=== PATIENT | female | born 1960 | race Hispanic/Latino ===

== ENCOUNTER 2020-11-02 11:29 | Outpatient (CLI) | payer OTHER ==
[2020-11-05 19:33] LABS: CD4/CD8 Ratio 0.47 (0.86-5.00)
== END 2020-11-02 11:30 | disposition home or self-care (01) ==
LOC: LAB 11:29
PROVIDERS: ATTEND Internal Medicine
DX: B20 Human immunodeficiency virus [HIV] disease (principal); K75.9 Inflammatory liver disease, unspecified
CPT/HCPCS: 36415; 82024

== ENCOUNTER 2020-11-02 13:21 | Emergency (ER) | payer MEDICAID, OTHER ==
[2020-11-02 14:28] VITALS: BP 138/85
--- NOTE | 2020-11-02 14:34 | Event Note ---
ED Screening Note Date of service: 11/02/20 Time: 14:33 ED Screening Note: Patient presents with complaints of weakness and right wrist pain after fall History of thrombocytopenia and multiple blood transfusion This initial assessment/diagnostic orders/clinical plan/treatment(s) is/are subject to change based on patients health status, clinical progression and re- assessment by fellow clinical providers in the ED. Further treatment and workup at subsequent clinical providers discretion. Patient/guardian urged not to elope from the ED as their condition may be serious if not clinically assessed and managed. Initial orders include: Labs EKG
--- NOTE | 2020-11-02 14:57 | XRay Report ---
LEFT WRIST 3 VIEWS INDICATION / CLINICAL INFORMATION: Left wrist pain after fall. COMPARISON: None available. FINDINGS: BONES and JOINT(S): No acute fracture or subluxation. The bones are demineralized. There is moderate to severe osteoarthritis at the first CMC joint with mild radiocarpal joint space loss. Mild osteoart hritis is noted at the interphalangeal joint of the thumb. SOFT TISSUES: No significant abnormality. ADDITIONAL FINDINGS: None. IMPRESSION: 1. No acute findings. 2. Additional findings as above. Signer Name: Brandon Manley MD Signed: 11/02/2020 2:53 PM Workstation Name: [id number]
[2020-11-02 15:16] LABS: Basophils % (Auto) 0.1 % (0.0-1.8); Eosinophils # (Auto) 0.1 K/mm3 (0.0-0.4); Hematocrit 43.8 % (30.3-42.9); Hemoglobin 14.8 gm/dl (10.1-14.3); Lymphocytes # (Auto) 0.7 K/mm3 (1.2-5.4); Lymphocytes % (Auto) 16.1 % (13.4-35.0); Mean Corpuscular HGB Conc 34 % (30-34); Mean Corpuscular Volume 86 fl (79-97); Monocytes # (Auto) 0.4 K/mm3 (0.0-0.8); Monocytes % (Auto) 10.1 % (0.0-7.3); Red Blood Count 5.11 M/mm3 (3.65-5.03); Red Cell Distribution Width 13.6 % (13.2-15.2)
[2020-11-02 15:25] LABS: Platelet Count 11 K/mm3 (140-440)
[2020-11-02 15:27] LABS: INR 0.91 (0.87-1.13)
[2020-11-02 15:28] LABS: Partial Thromboplastin Time 31.5 Sec. (24.2-36.6)
[2020-11-02 15:58] LABS: Alanine Aminotransferase 46 units/L (7-56); Albumin 3.9 g/dL (3.9-5); BUN/Creatinine Ratio 12; Blood Urea Nitrogen 11 mg/dL (7-17); Calcium 9.2 mg/dL (8.4-10.2); Hemolysis Index 9
[2020-11-02] MEDS ORDERED: predniSONE 20 MG TAB PO ONE (16:06)
[2020-11-02] MEDS ORDERED: HYDROcodone/ACETAMINOPHEN 5-325 MG TAB PO ONE (16:06)
--- NOTE | 2020-11-02 16:15 | Emergency Department Report ---
ED General Adult HPI - General Chief complaint: Weakness Stated complaint: BAD NOSE BLEED PUI?: No Time Seen by Provider: 11/02/20 14:32 Source: patient Mode of arrival: Ambulatory Limitations: No Limitations - History of Present Illness Initial comments: Chief complaint: I am weak. I hurt my wrist. My platelets are low. HPI: This is a 60-year-old female with a history of HIV, HIV associated thrombocytopenia who presents with intermittent nosebleeds. Patient fell yesterday from standing position. Patient has had intermittent nosebleeding for the last 3 to 4 days. She attributed to low platelet count. She is followed by Dr. Astrid Aguilar, HIV doctor in [facility]. In order to address thrombocytopenia she is taking has taken steroids. She has received 2 platelet transfusions. She has been struggling with thrombocytopenia for about a month. She has not taken ART in 1 year. She says that she is just "tired of taking the medication.. She has right hand wrist pain after fall from standing on yesterday. No history of syncope. No chest pain. No shortness of breath. No head trauma. Patient has tenderness to the right hand and wrist. Aleve did not provide any relief. Pain is worse with range of motion. -: days(s) (Several days of nosebleeds), month(s) (Thrombocytopenia for the last month) Location: right, upper extremity Severity scale (0 -10): 8 Quality: aching Consistency: constant Improves with: none Worsens with: none Associated Symptoms: weakness, other (Nosebleeds) Treatments Prior to Arrival: none - Related Data Previous Rx's Medication Instructions Recorded Last Taken Type HYDROcodone/APAP 5-325 [Powderly 1 each PO Q6HR PRN #10 tablet 11/02/20 Unknown Rx 5/325] predniSONE 10 mg PO .TAPER #48 tab 11/02/20 Unknown Rx Allergies Allergy/AdvReac Type Severity Reaction Status Date / Time No Known Allergies Allergy Unverified 11/02/20 11:30 ED Review of Systems ROS: Stated complaint: BAD NOSE BLEED Other details as noted in HPI Comment: All other systems reviewed and negative Constitutional: malaise. denies: fever Respiratory: denies: cough, shortness of breath Gastrointestinal: denies: nausea, vomiting Hematological/Lymphatic: easy bleeding ED Past Medical Hx - Past Medical History Previous Medical History?: Yes Hx HIV: Yes Additional medical history: THROMBOCYTOPENIA - Social History Smoking Status: Never Smoker Substance Use Type: None - Medications Home Medications: Home Medications Medication Instructions Recorded Confirmed Last Taken Type HYDROcodone/APAP 5-325 [Powder[place] 1 each PO Q6HR PRN #10 tablet 11/02/20 Unknown Rx 5/325] predniSONE 10 mg PO .TAPER #48 tab 11/02/20 Unknown Rx ED Physical Exam - General Limitations: No Limitations General appearance: alert, in no apparent distress - Head Head exam: Present: atraumatic, normocephalic - Eye Eye exam: Present: normal appearance - ENT ENT exam: Present: mucous membranes moist - Neck Neck exam: Present: normal inspection, full ROM - Respiratory Respiratory exam: Present: normal lung sounds bilaterally. Absent: respiratory distress, wheezes, rales, rhonchi - Cardiovascular Cardiovascular Exam: Present: regular rate, normal rhythm, normal heart sounds. Absent: systolic murmur, diastolic murmur, rubs, gallop - GI/Abdominal GI/Abdominal exam: Present: soft, normal bowel sounds. Absent: distended, tenderness, guarding, rebound - Extremities Exam Extremities exam: Present: normal inspection - Expanded Upper Extremity Exam Right Shoulder Exam: Present: normal inspection, full ROM Upper Arm exam: Present: normal inspection, full ROM Elbow exam: Present: normal inspection, full ROM Forearm Wrist exam: Present: full ROM, tenderness. Absent: swelling, abrasion Hand Wrist exam: Present: normal inspection, full ROM - Back Exam Back exam: Present: normal inspection - Neurological Exam Neurological exam: Present: alert, oriented X3 - Psychiatric Psychiatric exam: Present: normal affect, normal mood - Skin Skin exam: Present: warm, dry, intact, normal color. Absent: rash ED Course Vital Signs 11/02/20 14:23 Temperature 98.1 F Pulse Rate 114 H Respiratory 20 Rate Blood Pressure 138/85 O2 Sat by Pulse 98 Oximetry ED Medical Decision Making - Lab Data Result diagrams: 11/02/20 15:06 11/02/20 15:06 Laboratory Results - last 24 hr 11/02/20 11/02/20 11/02/20 15:06 15:06 15:06 WBC 4.1 L RBC 5.11 H Hgb 14.8 H Hct 43.8 H MCV 86 MCH 29 MCHC 34 RDW 13.6 Plt Count 11 L* Lymph % (Auto) 16.1 [place] % (Auto) 10.1 H Eos % (Auto) 2.0 Baso % (Auto) 0.1 Lymph # (Auto) 0.7 L [place] # (Auto) 0.4 Eos # (Auto) 0.1 Baso # (Auto) 0.0 Seg Neutrophils % 71.7 H Seg Neutrophils # 3.0 PT 12.1 L INR 0.91 APTT 31.5 Sodium 141 Potassium 4.6 Chloride 107.7 H Carbon Dioxide 25 Anion Gap 13 BUN 11 Creatinine 0.9 Estimated GFR > 60 BUN/Creatinine Ratio 12 Glucose 143 H Calcium 9.2 Total Bilirubin 0.70 AST 60 H ALT 46 Alkaline Phosphatase 99 Troponin T < 0.010 Total Protein 7.5 Albumin 3.9 Albumin/Globulin Ratio 1.1 - EKG Data -: EKG Interpreted by Ms EKG shows normal: sinus rhythm, axis, intervals, QRS complexes, ST-T waves Rate: normal - EKG Data Interpretation: normal EKG 11/02/20 16:16 EKG obtained 1432 EKG interpreted by ri Normal sinus rhythm normal rate normal axis normal intervals no ST elevation no ST-T signs of ischemia normal EKG rate 80 bpm - Radiology Data Radiology results: report reviewed LEFT WRIST 3 VIEWS INDICATION / CLINICAL INFORMATION: Left wrist pain after fall. COMPARISON: None available. FINDINGS: BONES and JOINT(S): No acute fracture or subluxation. The bones are demineralized. There is moderate to severe osteoarthritis at the first CMC joint with mild radiocarpal joint space loss. Mild osteoarthritis is noted at the interphalangeal joint of the thumb. SOFT TISSUES: No significant abnormality. ADDITIONAL FINDINGS: None. IMPRESSION: 1. No acute findings. 2. Additional findings as above. - Medical Decision Making 1. Generalized weakness: No evidence of bleeding. Mild dehydration suspected with hemoconcentration. 2. HIV-associated thrombocytopenia: Prednisone taper prescribed. Patient strongly encouraged to resume taking ART 3. Right wrist pain after fall: Left wrist radiographs were ordered. However patient did have imaging performed of the right wrist. However the imaging has been read as the left wrist. I have consulted supervisor microwave in order to rectify the documentation. No evidence of fracture or carpal bone dislocation on clinical exam. Patient prescribed Powderly. Patient was given referrals to both outpatient medicine physician and infectious disease jd edwards consultant. Critical care attestation.: If time is entered above; I have spent that time in minutes in the direct care of this critically ill patient, excluding procedure time. ED Disposition Clinical Impression: HIV (human immunodeficiency virus infection), Thrombocytopenia, Right wrist sprain, Generalized weakness Disposition: TO HOME OR SELFCARE Is pt being admited?: No Does the pt Need Aspirin: No Condition: Stable Prescriptions: HYDROcodone/APAP 5-325 [Powder[place] 5/325] 1 each PO Q6HR PRN #10 tablet PRN Reason: Pain predniSONE 10 mg PO .TAPER #48 tab Referrals: SUGAR DONAHUE MD [Staff Physician] - 3-5 Days CHAPIS DELGADO MD [Staff Physician] - 3-5 Days
== END 2020-11-02 16:40 | disposition home or self-care (01) ==
LOC: ED 13:21
DX: S63.501A Unspecified sprain of right wrist, initial encounter (principal); D69.6 Thrombocytopenia, unspecified; Z21 Asymptomatic human immunodeficiency virus [HIV] infection status; Z79.899 Other long term (current) drug therapy; W18.30XA Fall on same level, unspecified, initial encounter; Y93.89 Activity, other specified; Y92.89 Other specified places as the place of occurrence of the external cause; Y99.8 Other external cause status
CPT/HCPCS: 36415; 73110; 80053; 84484; 85025; 85610; 85730; 93005; 99284; J7512